=== PATIENT | female | born 1955 | race Caucasian/White ===

== ENCOUNTER → 2016-06-17 | Day surgery (SDC) | payer OTHER ==
[~2016-06-17] MED LIST: ALPRAZolam 0.25 MG TAB ONE; LIDOCAINE 1% INJ 10MG/ML (20 ML MDV) ONE; SODIUM BICARB 4% 5 ML VIAL (0.48 MEQ/ML) ONE
--- NOTE | 2016-06-17 15:02 | USB ---
EXAMINATION TYPE: US breast aspiration single LT, MG diagnostic mammo LT wo CAD DATE OF EXAM: 06/17/2016 1:46 PM CLINICAL HISTORY: US. Abnormal mammogram and ultrasound TECHNIQUE: Ultrasound guided fine-needle aspiration and/or core biopsy of left breast with clip placement and follow-up 2 view mammogram. COMPARISON: Prior bilateral diagnostic breast mammogram and left breast ultrasound May 27, 2016 FINDINGS: The procedure of ultrasound guided fine-needle aspiration and/or core biopsy with possible clip placement was explained to the patient. Benefits, alternatives, and risks were discussed. An informed consent was then obtained. The patient was placed in supine positioning for imaging and for the procedure. Preprocedure scanning redemonstrates a thick-walled 1.9 x 1.3 x 2.3 cm anechoic lesion with internal echoes at 4:00 position zone a of the left breast that has slightly lobulated margins. The overlying skin was prepped and draped in usual sterile fashion. Lidocaine buffered with bicarbonate was used as anesthetic into the skin and subcutaneous tissue up to area of concern in the left breast. Under ultrasound guidance, an 18-gauge needle was used to aspirates 3 to 4 cc of dark fluid probable old blood product. Following this, a biopsy clip was left in lesion. Minimal residual thick walled fluid collection was present. No biopsy was performed as no bright red blood was seen and no suspicious residual solid or vascular component was identified during real-time scanning. The patient tolerated the procedure well without any immediate complication. The patient was kept in the radiology department for short stay after the procedure and then discharged home in stable condition. Postprocedure mammogram shows successful deployment of clip which corresponds to level of palpable abnormality. There is now more suspicious group of calcifications at this level seen better after aspiration. IMPRESSION: Successful, uncomplicated ultrasound guided fine-needle aspiration of area of concern in the left breast, full pathology results to follow. Intermediate index of suspicion noted at time of procedure. Patient states had recent trauma at this level which would correspond to aspirate. However note is made of more prominent group of calcifications at this level which would strongly consider stereotactic guided core biopsy if benign results from aspirate are obtained. Pathology Results: Benign BREAST, LEFT, ASPIRATE: DEGENERATED CELLULAR MATERIAL AND MACROPHAGES CONSISTENT WITH CYST CONTENTS. Recommendation Repeat biopsy. Stereotactic core biopsy of the left breast. (Given the more prominent group of calcifications at this level). MTDD
== END ==
LOC: RADUSWWP 12:03
PROVIDERS: ATTEND Surgery
DX: N60.02 Solitary cyst of left breast (principal); N64.89 Other specified disorders of breast; R92.8 Other abnormal and inconclusive findings on diagnostic imaging of breast; Z88.0 Allergy status to penicillin
CPT/HCPCS: 88108; 88305; 76942; 19000; G0206; A4648; J2001

== ENCOUNTER → 2016-07-09 | Day surgery (SDC) | payer OTHER ==
[~2016-07-09] MED LIST changes: +BACITRACIN OINT 1 EACH PACKET TOPICAL ONE; +LIDOCAINE 1%-EPI 1:100,000 20 ML VIAL ONE; -SODIUM BICARB 4% 5 ML VIAL (0.48 MEQ/ML) ONE
--- NOTE | 2016-07-09 15:42 | MM ---
EXAMINATION TYPE: MG stereo VAD BX LT DATE OF EXAM: 07/09/2016 3:36 PM COMPARISON: Previous mammograms dated 06/17/2016 and 05/27/2016 CLINICAL HISTORY: Abnormal mammogram TECHNIQUE: Stereotactic guided core biopsy of left breast. FINDINGS: The procedure of stereotactic guided core biopsy was explained to the patient. Benefits, alternatives, and risks were discussed. An informed consent was then obtained. [facility] was chosen. Shortness pathway was the cc approach. I performed the localization, then surgeon, Dr. Arrieta performed the remainder of the procedure. A vacuum assisted biopsy gun was used to obtain multiple core samples. The patient tolerated the procedure well without any immediate complication. The patient was kept in the radiology department for short stay after the procedure and then discharged home in stable condition. Targeted calcifications are identified in specimen mammogram. Post biopsy mammogram shows the clip to appear in satisfactory position relative to the targeted area of concern on the preprocedure images. IMPRESSION: SUCCESSFUL, UNCOMPLICATED STEREOTACTIC GUIDED CORE BIOPSY OF AREA OF CONCERN IN THE LEFT BREAST, FULL PATHOLOGY RESULTS TO FOLLOW. Pathology Results: Benign BREAST, LEFT, CORE BIOPSY: FIBROCYSTIC CHANGES INCLUDING INFLAMED CYST WALL WITH RUPTURE, FIBROSIS/SCAR WITH CHRONIC INFLAMMATION, FOREIGN BODY REACTION TO REFRACTILE CRYSTALLINE MATERIAL SUGGESTIVE OF CALCIUM OXYLATE CRYSTALS, APOCRINE METAPLASIA AND MILD USUAL TYPE DUCTAL HYPERPLASIA. Recommendation Follow up mammogram of the left breast in 6 months. MIKA
== END ==
LOC: RADMAMWWP 13:24
PROVIDERS: ATTEND Surgery
DX: N60.02 Solitary cyst of left breast (principal); N60.82 Other benign mammary dysplasias of left breast; N60.92 Unspecified benign mammary dysplasia of left breast; R92.8 Other abnormal and inconclusive findings on diagnostic imaging of breast; Z88.0 Allergy status to penicillin
CPT/HCPCS: 88305

== ENCOUNTER → 2018-03-08 | Outpatient (CLI) | payer OTHER ==
--- NOTE | 2018-03-08 11:24 | XR ---
EXAMINATION TYPE: XR chest 2V DATE OF EXAM: 03/08/2018 COMPARISON: NONE TECHNIQUE: PA and lateral views submitted. HISTORY: Cough FINDINGS: Heart size is normal. No interstitial edema or pneumothorax. Subsegmental consolidation left lung bas e. Hypertrophic and degenerative change of the spine. IMPRESSION: 1. Left basilar atelectasis or early infiltrate correlate clinically.
== END ==
LOC: RADXRYALE 10:20
PROVIDERS: ATTEND Physician Assistant Medical
DX: R05 Cough (principal)
CPT/HCPCS: 71046

== ENCOUNTER → 2018-03-15 | Outpatient (CLI) | payer OTHER ==
--- NOTE | 2018-03-15 14:02 | XR ---
EXAMINATION TYPE: XR chest 2V DATE OF EXAM: 03/15/2018 COMPARISON: Prior chest x-ray 03/08/2018 HISTORY: Cough TECHNIQUE: Frontal and lateral views of the chest are obtained. FINDINGS: There is no focal air space opacity, pleural effusion, or pneumothorax seen. The cardiac silhouette size is stable, patient is rotated. The osseous structures are intact. Prominent lung vo lumes suggest COPD. There is bronchial wall thickening. Suspect prominent epicardial fat pad. IMPRESSION: Correlate for bronchitis, reactive airways disease, follow-up as indicated
== END | disposition home or self-care (01) ==
LOC: RADXRYALE 10:43
PROVIDERS: ATTEND Physician Assistant Medical
DX: R05 Cough (principal)
CPT/HCPCS: 71046

== ENCOUNTER → 2019-03-29 | Outpatient (CLI) | payer BC ==
--- NOTE | 2019-03-29 14:45 | CTL ---
EXAMINATION TYPE: CT Low Dose Lung DATE OF EXAM ORDERED: 03/29/2019 HISTORY: 63-year-old female Personal hx tobacco use, asthmatic symptoms. Lung cancer screening CT DLP: 137.[address] CTDI: 3.8 mGy Automated exposure control for dose reduction was used. SCREENING VISIT: Baseline COMPARISON: None TECHNIQUE: Low dose computed tomography scan was performed through the chest at 1 mm thick sections a nd reconstructed images in the coronal and sagittal plane. Additional coronal MIP reconstruction perf ormed. CT DIAGNOSTIC QUALITY: Satisfactory FINDINGS: Heart normal size without pericardial effusion. Prominent epicardial fat pad. Mildly ectatic ascending aorta at 3.6 cm with bovine configuration to the aortic arch. Borderline caliber to the main right and left pulmonary arteries are 2.5 cm each, may reflect underly ing pulmonary arterial hypertension. Technique 3 mm peripheral right apical pulmonary nodule, axial image 36. 3 mm anterior right upper lobe pulmonary nodule, axial image 62. Inferior lingular subpleural atelectasis. No consolidation or pleural effusion. Visualized upper abdomen shows cholecystectomy clips. Bones: No osseous destructive process. IMPRESSION: 1. LungRADS 2 - Benign. Couple 3 mm right upper lobe pulmonary nodules at baseline. 2. No acute pulmonary process. RECOMMENDATION: 1. Continue annual low-dose lung cancer screening CT. 2. Smoking cessation. FOLLOW UP CT CHEST RECOMMENDATION: [address] LUNG RAD: Lung-Rad 2 Benign Appearance or Behavior
== END | disposition home or self-care (01) ==
LOC: RADCTMAIN 12:15
PROVIDERS: ATTEND Internal Medicine Critical Care Medicine
DX: Z12.2 Encounter for screening for malignant neoplasm of respiratory organs (principal); R91.8 Other nonspecific abnormal finding of lung field; Z87.891 Personal history of nicotine dependence
CPT/HCPCS: 94726; 94729; 94060; G0297

== ENCOUNTER → 2019-07-21 | Outpatient (CLI) | payer BC ==
--- NOTE | 2019-07-21 16:17 | XR ---
EXAMINATION TYPE: XR ankle complete LT DATE OF EXAM: 07/21/2019 COMPARISON: NONE HISTORY: Pain FINDINGS: Three views of the ankle demonstrate the ankle mortise to be intact and symmetric. Large plantar calc aneal spur. Small spur at the Achilles insertion of the calcaneus.. The osseous structures are intac t. IMPRESSION: 1. Calcaneal spurs.
--- NOTE | 2019-07-21 16:20 | XR ---
EXAMINATION TYPE: XR foot complete LT DATE OF EXAM: 07/21/2019 COMPARISON: NONE HISTORY: Pain TECHNIQUE: Three views are submitted. FINDINGS: The osseous structures are intact. There is no acute fracture or dislocation. There is arthropathy and hypertrophic change of the first MTP. No erosive change. Plantar calcaneal spur noted. IMPRESSION: 1. Large plantar calcaneal spur. 2. Arthropathy first MTP joint
== END | disposition home or self-care (01) ==
LOC: RADXRYALE 14:59
PROVIDERS: ATTEND Physician Assistant
DX: M12.872 Other specific arthropathies, not elsewhere classified, left ankle and foot (principal); M79.672 Pain in left foot

== ENCOUNTER → 2021-05-22 | Outpatient (CLI) | payer OTHER ==
--- NOTE | 2021-05-22 15:56 | XR ---
Lumbosacral spine HISTORY: Back pain 5 views lumbosacral spine Bone mineralization is reduced. Lumbar vertebral bodies show preserved height. There is a slight levo scoliosis. No evident spondylolysis or spondylolisthesis. Loss of disc height is present at intervert ebral levels. Sclerosis is present posterior elements of the lower lumbar spine. Vascular calcificati ons present within the aorta iliac distribution. Surgical clips are present right upper quadrant. IMPRESSION: Degenerative disc disease, osteopenia, facet arthropathy.
== END | disposition home or self-care (01) ==
LOC: RADXRYALE 14:46
PROVIDERS: ATTEND Physician Assistant Medical
DX: M51.36 Other intervertebral disc degeneration, lumbar region (principal); M47.816 Spondylosis without myelopathy or radiculopathy, lumbar region
CPT/HCPCS: 72110

== ENCOUNTER → 2023-11-06 | Outpatient (CLI) | payer MEDICARE, OTHER ==
--- NOTE | 2023-11-06 11:19 | XR ---
EXAMINATION TYPE: XR abdomen 2V DATE OF EXAM: 11/06/2023 COMPARISON: NONE HISTORY: Pain TECHNIQUE: One view abdominal series FINDINGS: Degenerative changes of the spine. Hypertrophic hip arthropathy.. The bowel gas pattern is nonspecif ic. Lung bases are clear. Postsurgical changes involving the abdomen. Significant amount of retained fecal debris. Calcifications in the pelvis are vascular. IMPRESSION: 1. Nonspecific abdomen. Correlate for constipation.
== END | disposition home or self-care (01) ==
LOC: RADXRYALE 10:55
PROVIDERS: ATTEND Physician Assistant Medical
DX: R10.30 Lower abdominal pain, unspecified (principal)
CPT/HCPCS: 74019

== ENCOUNTER → 2024-03-21 | Outpatient (CLI) | payer MEDICARE ==
--- NOTE | 2024-03-21 14:56 | XR ---
EXAMINATION TYPE: XR abdomen 2V DATE OF EXAM: 03/21/2024 COMPARISON: 11/06/2023 HISTORY: Pain TECHNIQUE: One view abdominal series FINDINGS: The osseous structures are intact. The bowel gas pattern is nonspecific. Lung bases are clear. Post surgical change right upper quadrant. Generalized osteopenia. Degenerative changes of the spine. Vasc ular calcifications noted. Bilateral hypertrophic hip arthropathy. Calcified phleboliths in the pelvi s. IMPRESSION: 1. Nonspecific abdomen. [facility], , 03/21/2024 2:53 PM
== END | disposition home or self-care (01) ==
LOC: RADXRYALE 14:34
PROVIDERS: ATTEND Physician Assistant
DX: R10.30 Lower abdominal pain, unspecified (principal)
CPT/HCPCS: 74019

== ENCOUNTER → 2024-09-19 | Outpatient (CLI) | payer MEDICARE ==
--- NOTE | 2024-09-19 15:48 | XR ---
EXAMINATION TYPE: XR foot complete LT DATE OF EXAM: 09/19/2024 2:56 PM COMPARISON: 07/21/2019 CLINICAL INDICATION: Female, 68 years old with history of [id number] LT FOOT PAIN; YCH, pain TECHNIQUE: 3 views FINDINGS: Moderate-sized plantar heel spur. Mild degenerative spurring along the dorsal midfoot. Inci dental bipartite tibial sesamoid. Mild degenerative joint space narrowing first MTP joint. No acute f racture, subluxation, dislocation seen. IMPRESSION: 1. Moderate-sized plantar heel spur. 2. Mild degenerative change first MTP joint. 3. Some additional degenerative change along the dorsal aspect of the midfoot. [facility], Workstation: [facility], 09/19/2024 3:46 PM
== END | disposition home or self-care (01) ==
LOC: RADXRYALE 14:33
PROVIDERS: ATTEND Physician Assistant Medical
DX: M19.072 Primary osteoarthritis, left ankle and foot (principal)